=== PATIENT | male | born 1975 ===

== ENCOUNTER 2018-10-24 15:21 | Emergency (ER) | payer OTHER, SELFPAY ==
[2018-10-24 15:37] VITALS: BP 126/89; PULSE 96; RESP 16; TEMP 36.4; O2SAT 98
--- NOTE | 2018-10-24 20:44 | ED.MALEGU ---
HPI - Male Genitourinary <ZACHARIAH Marte - Last Filed: 10/24/18 23:22> General Chief complaint: Urogenital-Male Stated complaint: Groin issues,redness,hurts to urinate,x3 wks Time Seen by Provider: 10/24/18 20:20 Source: patient and family Mode of arrival: ambulatory Limitations: no limitations History of Present Illness HPI Narrative: Patient is a 42-year-old male who presents with his nephew with a chief complaint of penile discharge x4 weeks as well as a genital rash. he states that the rash creates discharge. the rash is also been going on for 3-4 weeks. He denies any abdominal pain. He states his rash is painful, electric feeling. Of note patient does not speak Malay and was repeatedly offered a welder [employer]. However he repeatedly stated that his nephew is a good welder [employer] declined use of our welder [employer]. He denies any fevers, nausea vomiting diarrhea. He states he has had sexual contact with multiple partners without protection recently. Denies any testicular pain or swelling. Denies abdominal pain or fever. Related Data Previous Rx's Medication Instructions Recorded valacyclovir 1,000 mg PO BID #20 tab 10/24/18 Allergies Allergy/AdvReac Type Severity Reaction Status Date / Time No Known Drug Allergies Allergy Verified 10/24/18 15:37 Review of Systems <ZACHARIAH Marte - Last Filed: 10/24/18 23:22> Review of Systems GENERAL: see HPI HEENT: Denies sinus pain, ear pain, sore throat, difficulty swallowing, dizziness. RESPIRATORY: Denies dyspnea, cough, wheezing, hemoptysis, sputum. CARDIOVASCULAR: Denies chest pain, palpitations, orthopnea, edema, GASTROINTESTINAL: Denies nausea, vomiting, abdominal pain, diarrhea, constipation, melena. : See HPI MUSCULOSKELETAL: denies weakness, joint pain, or bony pain SKIN: Denies rash, skin lesions, or other NEUROLOGIC: Denies weakness, headache, numbness, change in speech, confusion, seizures, incoordination. PSYCHIATRIC: No concerning psychosocial issues. 12 point review of systems is negative except for those stated above Exam <ZACHARIAH Marte - Last Filed: 10/24/18 23:22> Narrative Exam Narrative: GENERAL: This is a well-nourished, well-developed patient, Appears anxious HEAD: Atraumatic. Normocephalic. No temporal or scalp tenderness. EYES: Pupils equal round and reactive. Extraocular motions intact. No scleral icterus. No injection or drainage. ENT: Nose without bleeding, purulent drainage or septal hematoma. Throat without erythema, tonsillar hypertrophy or exudate. Uvula midline. Airway patent. NECK: Trachea midline. No JVD or lymphadenopathy. Supple, nontender, no meningeal signs. CARDIOVASCULAR: Regular rate and rhythm RESPIRATORY: no cough. No increased respiratory effort. GASTROINTESTINAL: Abdomen soft, non-tender, nondistended. No hepato-splenomegaly, or palpable masses. No guarding. EXTREMITIES: No clubbing, cyanosis, or edema. No joint tenderness, effusion, or edema noted. BACK: Nontender without deformity or crepitance. No flank tenderness. NEURO: AOx3. SKIN: Genital exam done with Jelena LONG as dietary service aide. Slight vesicular rash noted at of penis. Slight crusting noted. No penile discharge noted. Initial Vital Signs Initial Vital Signs: Vital Signs Temperature 97.5 F L 10/24/18 15:37 Pulse Rate 96 H 10/24/18 15:37 Respiratory Rate 16 10/24/18 15:37 Blood Pressure 126/89 10/24/18 15:37 Pulse Oximetry 98 10/24/18 15:37 <Nicolas Laura MD - Last Filed: 10/26/18 05:38> Initial Vital Signs Initial Vital Signs: Vital Signs Temperature 97.5 F L 10/24/18 15:37 Pulse Rate 96 H 10/24/18 15:37 Respiratory Rate 16 10/24/18 15:37 Blood Pressure 126/89 10/24/18 15:37 Pulse Oximetry 98 10/24/18 15:37 Course <MIREYA Marte-RENETTA - Last Filed: 10/24/18 23:22> Orders Ordered: Discontinued Medications Ibuprofen (Advil) 800 mg PO NOW ONE Stop: 10/24/18 22:26 Last Admin: 10/24/18 22:35 Dose: 800 mg Vital Signs - 8 hr 10/24/18 15:37 10/24/18 22:12 Temperature 97.5 F L Pulse Rate 96 H 92 H Respiratory Rate 16 18 Blood Pressure 126/89 Blood Pressure [Right Arm] 134/88 Pulse Oximetry 98 98 <Nicolas Laura MD - Last Filed: 10/26/18 05:38> Orders Ordered: Discontinued Medications Ibuprofen (Advil) 800 mg PO NOW ONE Stop: 10/24/18 22:26 Last Admin: 10/24/18 22:35 Dose: 800 mg Vital Signs - 8 hr 10/24/18 15:37 10/24/18 22:12 Temperature 97.5 F L Pulse Rate 96 H 92 H Respiratory Rate 16 18 Blood Pressure 126/89 Blood Pressure [Right Arm] 134/88 Pulse Oximetry 98 98 MDM - Male Genitourinary <MIREYA Marte- - Last Filed: 10/24/18 23:22> Lab Data Lab Results 10/24/18 10/24/18 10/24/18 Range/Units 20:06 20:20 20:40 Urine RBC None seen (0-5/HPF) Urine WBC None seen (0-5/HPF) Urine Bacteria None seen (None) Ur Culture Indicated? Cult not indicated Micro UA Comment Microscopic normal Ur Chlamydia DNA (PCR) Not detected Hep Bs Antigen Negative (NEGATIVE) s/c HIV 1&2 Antibody Negative (NEGATIVE) N gonorrhoeae DNA (PCR) Not detected Urine Dip Bedside Urine Glucose 1000 mg/dl Bedside Urine Bilirubin - Negative Bedside Urine Ketone + 15 Urine Specific [place] 1.010 Bedside Urine Occult Blood - Negative Bedside Urine pH 6.5 Bedside Urine Protein - Negative Bedside Urine Urobilinogen +/- 1mg Bedside Urine Nitrite - Negative Bedside Urine Leukocytes - Negative Esterase MDM Narrative Medical decision making narrative: The patient is a 42-year-old male who presents with suspicion of STIs given multiple sexual partners recently. He does have a genital rash noted and the exam is consistent with genital herpes. He had a negative gonorrhea, negative chlamydia, negative HIV. At this point several labs are pending as we do not do them in house. I encouraged the patient to follow up with primary care provider or obtain medical records. I encouraged him to do safe sex practices, use condoms etc. the patient elected to treat for herpes at this point in time while viral cultures are pending. I encouraged him at length to follow up with primary care provider. <Nicolas Laura MD - Last Filed: 10/26/18 05:38> Lab Data Lab Results 10/24/18 10/24/18 10/24/18 Range/Units 20:06 20:20 20:40 Urine RBC None seen (0-5/HPF) Urine WBC None seen (0-5/HPF) Urine Bacteria None seen (None) Ur Culture Indicated? Cult not indicated Micro UA Comment Microscopic normal Ur Chlamydia DNA (PCR) Not detected Hep Bs Antigen Negative (NEGATIVE) s/c HIV 1&2 Antibody Negative (NEGATIVE) N gonorrhoeae DNA (PCR) Not detected Urine Dip Bedside Urine Glucose 1000 mg/dl Bedside Urine Bilirubin - Negative Bedside Urine Ketone + 15 Urine Specific [place] 1.010 Bedside Urine Occult Blood - Negative Bedside Urine pH 6.5 Bedside Urine Protein - Negative Bedside Urine Urobilinogen +/- 1mg Bedside Urine Nitrite - Negative Bedside Urine Leukocytes - Negative Esterase Discharge Plan Departure Patient Disposition: Home Clinical Impression: Herpes Discharge Date/Time: 10/24/18 23:45 Interventions: ED Discharge Assessment Last Done: 10/24/18 23:44 Instructions: Facts About Sexually Transmitted Infections, How to Detect and Treat STDs, DI for Genital Herpes Activity Restrictions/Additional Instructions: Given the rash on your genitals, we are starting treatment for herpes. Your chlamydia gonorrhea and HIV test were negative. Please follow up with her primary care provider regarding her other test results as we have to send these out. If the herpes test comes back negative, he can discontinue treatment. Please follow-up with primary care provider. Please come back to the emergency department for urgent concerns including chest pain, shortness of breath concern of heart attack or stroke. It is very important that you speak with her sexual partners regarding her diagnoses so that they can be checked as well. It is very important that you use condoms and use safe sex practices. Prescriptions: New valacyclovir 1 gram tablet 1,000 mg PO BID Qty: 20 RF: 0 Referrals: Ofe Garcia MD [Primary Care Provider] - <Nicolas Laura MD - Last Filed: 10/26/18 05:38> Cosign ED Attending Jasonature Attestation: I was working in the ER at the time of this patient's evaluation. I was available for verbal consult or to see the patient directly if needed. I agree with the patient's assessment and treatment plan.
[2018-10-24 21:18] LABS: Hepatitis B Surface Antigen NEGATIVE s/c (NEGATIVE)
[2018-10-24 21:21] LABS: HIV 1 and 2 Antibody NEGATIVE (NEGATIVE)
[2018-10-24 21:41] LABS: Urine N gonorrhoeae NOT DETECTED
[2018-10-24 22:12] VITALS: BP 134/88; PULSE 92; RESP 18; O2SAT 98
[2018-10-24 22:14] LABS: Urine Chlamydia NOT DETECTED
[2018-10-24 22:22] LABS: Bacteria Urine None Seen; RBC Urine None Seen (0-5/HPF); WBC Urine None Seen (0-5/HPF)
[2018-10-24] MEDS: IBUPROFEN 400 MG TABLET 800 MG PO (22:35)
[2018-10-24 23:02] LABS: Culture Indicated Urine Cult Not Indicated; Urine Comments Microscopic Normal
[2018-10-24 23:42] VITALS: BP 135/89; PULSE 83; RESP 18; O2SAT 98
[2018-10-27 15:13] LABS: Hepatitis B Surf Ab Qualitativ Reactive (Nonreactive)
== END 2018-10-24 23:45 | disposition home or self-care (01) ==
PROVIDERS: Emergency Provider Nurse Practitioner Family; Family Provider Internal Medicine; PCP Internal Medicine
DX: A60.00 Herpesviral infection of urogenital system, unspecified (principal); Z72.51 High risk heterosexual behavior
CPT/HCPCS: 36415; 81003; 81015; 86703; 86706; 86780; 87252; 87340; 87491; 87591; 99282

== ENCOUNTER 2018-11-19 19:37 | Inpatient (IN) | payer OTHER, SELFPAY ==
[2018-11-19 19:42] VITALS: BP 99/69; PULSE 87; RESP 18; TEMP 37.1; O2SAT 98
[2018-11-19 20:00] VITALS: BP 117/75; PULSE 83; RESP 18; O2SAT 98
--- NOTE | 2018-11-19 20:37 | ED.GENADULT ---
HPI - General Adult General Chief complaint: Diabetic Problem Stated complaint: STATES HIGH BLOOD SUGAR Time Seen by Provider: 11/19/18 20:11 Source: patient and family Mode of arrival: ambulatory Limitations: no limitations History of Present Illness HPI narrative: Patient complains of polydipsia and polyuria with fatigue for the last 4 weeks. He measured his blood sugar on a friend's glucometer today and found to be over 500. Patient denies nausea vomiting, but he has had a decreased appetite. No diarrhea. No dysuria, chest pain, shortness of breath, or cough. No fever. No other complaints at this time. Patient has a history of an elevated glucose reading of over 500 about a year ago had an unspecified doctor visit, but patient never followed up on this. Patient's relative states that is the blood sugars have been normal in between . When I asked him have a rib being measured, the relative stated that they had not actually been measuring, but just assumed that the blood sugars were normal because the patient was not having symptoms. Family member states that the patient goes to the doctor only extremely rarely. Related Data Home Medications Medication Instructions Recorded Confirmed albuterol sulfate [ProAir HFA] 1 - 2 puff INHALATION PRN PRN 11/19/18 11/19/18 Allergies Allergy/AdvReac Type Severity Reaction Status Date / Time No Known Drug Allergies Allergy Verified 10/24/18 15:37 Review of Systems Constitutional Denies chills, Denies fever(s), Denies lethargy and Denies weakness Comments: Polydypsia Eyes Denies change in vision, Denies eye discharge, Denies irritation and Denies loss of vision ENT Ears, Nose, Mouth, and Throat: Denies change in voice, Denies neck pain and Denies sore throat Cardiovascular Denies chest pain, Denies irregular heart rhythm, Denies lightheadedness, Denies palpitations, Denies dyspnea, Denies dyspnea on exertion and Denies orthopnea Respiratory Denies cough, Denies dyspnea, Denies dyspnea on exertion and Denies wheezing Gastrointestinal Gastrointestinal: Denies abdominal pain, Denies change in bowel habits, Denies diarrhea, Denies nausea and Denies vomiting Genitourinary Denies hematuria, Denies flank pain, Reports urinary frequency, Denies urinary incontinence and Denies urinary urgency Musculoskeletal Denies neck pain Integumentary/Breasts Denies pruritus, Denies erythema, Denies rash and Denies wounds Neurologic Denies confusion, Denies loss of vision and Denies weakness Psychiatric Denies anxiety, Denies confusion, Denies depression, Denies homicidal ideation and Denies suicidal ideation Endocrine Denies palpitations Hematologic/Lymphatic Denies easy bruising Allergic/Immunologic Denies wheezing PFSH Medical History Alcoholism (Acute) Hyperglycemia (Acute) Surgical History No pertinent past surgical history (Acute) Social History household members: none Smoking Status: Current every day smoker alcohol intake: former Social History household members: none Smoking Status: Current every day smoker alcohol intake: former Exam Initial Vital Signs Initial Vital Signs: Vital Signs Temperature 98.7 F 11/19/18 19:42 Pulse Rate 87 11/19/18 19:42 Respiratory Rate 18 11/19/18 19:42 Blood Pressure 99/69 11/19/18 19:42 Pulse Oximetry 98 11/19/18 19:42 Const General: cooperative and well developed Nutritional Appearance: well nourished Orientation: alert, awake, oriented x3 and not confused HENPA Head: normocephalic and atraumatic Ears: external ears normal Nose: external nose normal and No nasal discharge Face and sinus: face symmetric and No dry mucous membranes Mouth: oral mucosae normal and moist mucous membranes Teeth and gingiva: dentition normal Eyes General: appearance normal, both eyes and all related structures Eyelids: eyelids normal Conjunctivae: conjunctivae normal Sclera: sclerae normal Pupils: PERRL EOM: EOM intact bilaterally Neck Neck: normal visual inspection, trachea midline, No lymphadenopathy, No midline deformity and No JVD Lymphatic: No lymphedema Chest Chest: normal inspection of the chest Resp Effort & Inspection: normal respiratory effort, able to speak in complete sentences, no respiratory distress and no use of accessory muscles Auscultation: clear to auscultation bilaterally, no rales, no rhonchi and no wheezes Cardio Rate: regular rate Rhythm: regular rhythm Heart Sounds: no click, no gallops, no murmurs and no rubs Pulses: normal peripheral pulses GI Inspection: non-distended Palpation: soft, no hepatosplenomegaly, No guarding, No pulsatile mass and No tender Auscultation: normal bowel sounds Back/Spine/Pelvis Back: No CVA tenderness Cervical Spine: cervical ROM normal and No pain with cervical ROM Thoracic/Lumbar Spine: thoracic and lumbar spine normal to inspection Skin General: no rashes or lesions noted, No jaundice and No petechiae Neuro General: alert, oriented x3, gait normal and no focal motor deficits Speech: speech normal Extrem General: full ROM, no clubbing, cyanosis or edema, no pedal edema and no calf tenderness Psych Appearance: well kempt Mental Status: mental status grossly normal Attitude: cooperative Thought Content: normal and suicidality Judgment: judgment good Course Course Narrative: Patient was fairly well appearing, despite the very high reported blood sugar reading. He did not appear clinically to be in DKA. Additionally, his ABG was completely normal, and he did not have an anion gap that was wide. However, he was noted to have a blood sugar of 624 on laboratory studies, with normal kidney function noted. He was bolused with IV fluids in the emergency department and was given 12 units of insulin IV. [place] the patient should be admitted to the hospital, and I did discuss this with the patient and his family. I spoke with Berny Garcia, the on-call hospitalist, and he did agree to admit the patient to his service. At this time, hospitalist service would like to do a sliding scale for the patient rather than a drip. Patient remained stable throughout his stay in the emergency department. Orders Ordered: ED Orders 11/19/18 20:10 Complete Blood Count AUTO DIFF Stat Comprehensive Metabolic Panel Stat Ketones (Beta-Hydroxybutyrate) Stat Lactate (Lactic Acid) Stat 11/19/18 20:24 ABG [Arterial Blood Gas] Stat 11/20/18 XR chest 2V Routine Basic Metabolic Panel Routine Complete Blood Count AUTO DIFF Routine Lipid Panel Routine 11/20/18 00:42 Consult to Dietitian, Adult Routine Consult to Discharge Planning Routine 11/20/18 00:43 Hemoglobin A1C % Routine 11/20/18 01:05 MRSA PCR Routine 11/20/18 01:09 Procalcitonin Routine 11/20/18 01:40 Respiratory Panel (Film Array) Urgent Acetaminophen (Tylenol) 650 mg PO Q6HR PRN PRN Reason: As Needed for Fever/Mild Pain Hydrocodone Bitart/Acetaminophen ([place] 5/325) 1 tab PO Q4HR PRN PRN Reason: Pain, Moderate (4-6) Albuterol (Ventolin Hfa) 2 puff INH Q4H PRN PRN Reason: Shortness Of Breath Benzonatate (Tessalon Perles) 200 mg PO TID PRN PRN Reason: Cough Bisacodyl (Dulcolax) 10 mg PO DAILY PRN PRN Reason: Constipation Dextrose (D50w) 25 gm IV PRN PRN; Protocol PRN Reason: Hypoglycemia Docusate Sodium (Colace) 100 mg PO BID UBALDO Enoxaparin Sodium (Lovenox) 40 mg SUBCUT DAILY UBALDO Sodium Chloride (Normal Saline 0.9%) 1,000 mls @ 200 mls/hr IV CONT UBALDO Last Admin: 11/20/18 00:56 Dose: 200 mls/hr Sodium Chloride (Normal Saline 0.9%) 1,000 mls @ 500 mls/hr IV BOLUS ONE Stop: 11/20/18 03:00 Ibuprofen (Advil) 600 mg PO Q6HR PRN PRN Reason: As Needed for Fever/Mild Pain Insulin Aspart (Novolog Flexpen) 0 unit SUBCUT ACHS UBALDO; Protocol Ondansetron HCl (Zofran) 4 mg IV Q8HR PRN PRN Reason: Nausea And Vomiting Pantoprazole Sodium (Protonix) 20 mg PO 0600 UBALDO Discontinued Medications Sodium Chloride (Normal Saline 0.9%) 1,000 mls @ 1,000 mls/hr IV BOLUS ONE Stop: 11/19/18 21:41 Last Infusion: 11/20/18 00:11 Dose: 0 mls/hr Admin: 11/19/18 20:46 Dose: 1,000 mls/hr Insulin Human Regular (Humulin R) 12 unit IV NOW ONE Stop: 11/19/18 22:08 Last Admin: 11/19/18 22:43 Dose: 12 unit Vital Signs - 8 hr 11/19/18 19:42 11/19/18 20:00 11/19/18 20:46 Temperature 98.7 F Pulse Rate 87 83 81 Respiratory Rate 18 18 19 Blood Pressure 99/69 Blood Pressure [Right Arm] 117/75 117/75 Pulse Oximetry 98 98 99 11/20/18 00:57 Temperature 98.4 F Pulse Rate 87 Respiratory Rate 18 Blood Pressure 115/72 Blood Pressure [Right Arm] Pulse Oximetry 95 Medical Decision Making Medical Records Medical records reviewed: Yes I reviewed the patient's medical records. Lab Data Lab results reviewed: Yes I reviewed the patient's lab results. Result diagrams: 11/19/18 20:10 11/19/18 20:10 Lab Results 11/19/18 11/19/18 11/19/18 Range/Units 20:10 20:10 20:10 WBC 3.7 L (4.5-11.0) X10^3/uL RBC 4.63 (4.5-5.9) X10^6/uL Hgb 13.2 L (13.5-17.5) g/dL Hct 39.2 L (41-53) % MCV 84.7 (80-100) fL MCH 28.5 (26-34) PG MCHC 33.6 (30-36) % RDW 16.6 H (11.6-14.8) % Plt Count 69 L (150-400) X10^3/uL Neut % (Auto) 60.6 (50-75) % Lymph % (Auto) 26.1 (25-40) % [place] % (Auto) 11.7 (3-14) % Eos % (Auto) 1.1 L (2-4) % Baso % (Auto) 0.5 (0-2) % Neut # (Auto) 2200 (9206-9016) /uL Lymph # (Auto) 1000 L (8342-2814) /uL [place] # (Auto) 400 (0-900) /uL Eos # (Auto) 0 (0-450) /uL Baso # (Auto) 0 (0-100) /uL ABG pH (7.35-7.45) ABG pCO2 (35-45) mmHg ABG pO2 (80-100) mmHg ABG HCO3 (22-26) mmol/L ABG Total CO2 (21-31) mmol/L ABG O2 Saturation (95-100) % ABG Base Excess (-2-2) mmol/L FiO2 Sodium 129 L (137-145) mmol/L Potassium 4.0 (3.4-5.1) mmol/L Chloride 91 L (98-107) mmol/L Carbon Dioxide 23 (22-32) mmol/L BUN 14 (9-20) mg/dL Creatinine 0.40 L (0.66-1.25) mg/dL Estimated GFR > 60.0 (>60) mL/min BUN/Creatinine Ratio 35.0 H (6-22) Glucose 624 H* (70-100) mg/dL Lactate 0.9 (0.7-2.1) mmol/L Calcium 8.7 (8.4-10.2) mg/dL Total Bilirubin 1.2 (0.2-1.3) mg/dL AST 33 (17-59) IU/L ALT 31 (21-72) IU/L Alkaline Phosphatase 183 H (38-126) U/L Total Protein 7.1 (6.3-8.2) g/dL Albumin 3.7 (3.5-5.0) g/dL Globulin 3.4 (1.7-4.1) g/dL Albumin/Globulin Ratio 1.1 (1.0-2.8) Ketones (<0.27) mmol/L 11/19/18 11/19/18 Range/Units 20:10 20:24 WBC (4.5-11.0) X10^3/uL RBC (4.5-5.9) X10^6/uL Hgb (13.5-17.5) g/dL Hct (41-53) % MCV (80-100) fL MCH (26-34) PG MCHC (30-36) % RDW (11.6-14.8) % Plt Count (150-400) X10^3/uL Neut % (Auto) (50-75) % Lymph % (Auto) (25-40) % [place] % (Auto) (3-14) % Eos % (Auto) (2-4) % Baso % (Auto) (0-2) % Neut # (Auto) (0872-0701) /uL Lymph # (Auto) (4802-3318) /uL [place] # (Auto) (0-900) /uL Eos # (Auto) (0-450) /uL Baso # (Auto) (0-100) /uL ABG pH 7.40 (7.35-7.45) ABG pCO2 37.4 (35-45) mmHg ABG pO2 90 (80-100) mmHg ABG HCO3 23 (22-26) mmol/L ABG Total CO2 24 (21-31) mmol/L ABG O2 Saturation 97 (95-100) % ABG Base Excess -2.0 (-2-2) mmol/L FiO2 21 Sodium (137-145) mmol/L Potassium (3.4-5.1) mmol/L Chloride (98-107) mmol/L Carbon Dioxide (22-32) mmol/L BUN (9-20) mg/dL Creatinine (0.66-1.25) mg/dL Estimated GFR (>60) mL/min BUN/Creatinine Ratio (6-22) Glucose (70-100) mg/dL Lactate (0.7-2.1) mmol/L Calcium (8.4-10.2) mg/dL Total Bilirubin (0.2-1.3) mg/dL AST (17-59) IU/L ALT (21-72) IU/L Alkaline Phosphatase (38-126) U/L Total Protein (6.3-8.2) g/dL Albumin (3.5-5.0) g/dL Globulin (1.7-4.1) g/dL Albumin/Globulin Ratio (1.0-2.8) Ketones 4.13 H (<0.27) mmol/L Point of Care Testing Glucose POC 325 Point of care testing: Point of Care Testing Glucose POC 325 Discharge Plan Departure Patient Disposition: Admitted As Inpatient Clinical Impression: Diabetes mellitus, new onset Discharge Date/Time: 11/20/18 00:51 Interventions: ED Discharge Assessment Last Done: 11/19/18 23:33 Admit Date/Time: 11/20/18 00:49 Admit Provider: Isaiah Garcia
[2018-11-19 20:43] LABS: Add Manual Diff / Slide Review NO; Basophils Absolute Auto 0 /uL (0-100); Basophils Percent Auto 0.5 % (0-2); Eosinophils Absolute Auto 0 /uL (0-450); Eosinophils Percent Auto 1.1 % (2-4); Hematocrit 39.2 % (41-53); Hemoglobin 13.2 g/dL (13.5-17.5); Lymphocytes Absolute Auto 1000 /uL (1100-4500); Lymphocytes Percent Auto 26.1 % (25-40); Mean Corpuscular HGB Conc 33.6 % (30-36); Mean Corpuscular Hemoglobin 28.5 PG (26-34); Mean Corpuscular Volume 84.7 fL (80-100); Monocytes Absolute Auto 400 /uL (0-900); Monocytes Percent Auto 11.7 % (3-14); Neutrophils Absolute Auto 2200 /uL (1500-7000); Neutrophils Percent Auto 60.6 % (50-75); Platelet Count 69 X10^3/uL (150-400); Red Blood Cell Count 4.63 X10^6/uL (4.5-5.9); Red Cell Distribution Width 16.6 % (11.6-14.8); White Blood Cell Count 3.7 X10^3/uL (4.5-11.0)
[2018-11-19 20:46] VITALS: BP 117/75; PULSE 81; RESP 19; O2SAT 99
[2018-11-19] MEDS: SODIUM CHLORIDE 0.9% 1,000 ML 1000 ML IV (20:46)
[2018-11-19 20:47] LABS: PCO2 ABG 37.4 mmHg (35-45); PO2 ABG 90 mmHg (80-100)
[2018-11-19 20:48] LABS: Fractionated Inspired Oxygen 21; HCO3 ABG 23 mmol/L (22-26); Oxygen Saturation ABG 97 % (95-100); TCO2 ABG 24 mmol/L (21-31)
[2018-11-19 20:52] LABS: Alanine Aminotransferase 31 IU/L (21-72); Albumin 3.7 g/dL (3.5-5.0); Albumin Globulin Ratio 1.1 (1.0-2.8); Alkaline Phosphatase 183 U/L (38-126); Aspartate Aminotransferase 33 IU/L (17-59); Bilirubin Total 1.2 mg/dL (0.2-1.3); Blood Urea Nitrogen 14 mg/dL (9-20); Calcium 8.7 mg/dL (8.4-10.2); Carbon Dioxide 23 mmol/L (22-32); Chloride 91 mmol/L (98-107); Estimated Glomerular Filt Rate > 60.0 mL/min (>60); Globulin 3.4 g/dL (1.7-4.1); Sodium 129 mmol/L (137-145); Total Protein 7.1 g/dL (6.3-8.2)
[2018-11-19 20:58] LABS: HEMOLYSIS 35 (0-50)
[2018-11-19 21:06] LABS: Lactate (Lactic Acid) 0.9 mmol/L (0.7-2.1)
[2018-11-19 21:09] LABS: Glucose 624 mg/dL (70-100)
[2018-11-19 22:31] LABS: Ketones (Beta-Hydroxybutyrate) 4.13 mmol/L (<0.27)
[2018-11-19] MEDS: INSULIN REGULAR 100 UNIT/ML 3 ML VIAL 12 UNIT IV (22:43)
--- NOTE | 2018-11-19 23:06 | PC.NURSE ---
Pt reports increased thirst and urination over past 4 weeks
[2018-11-20] VITALS (9 sets, daily range): BP systolic 115–126; BP diastolic 72–87; PULSE 66–91; RESP 16–20; TEMP 36.6–37; O2SAT 95–98; BMI 21.6
--- NOTE | 2018-11-20 | DI.US.S_ITS ---
PROCEDURE: US ABDOMEN COMPLETE INDICATIONS: ELEVATED ALK PHOS, PT AND INR, R/O LIVER OR BILIARY DISEASE TECHNIQUE: Real-time scanning was performed of the abdominal and retroperitoneal organs, with image documentation. COMPARISON: None. FINDINGS: Liver: Liver is normal in size and homogeneous in echotexture. Gallbladder: Gallbladder is normal in sonographic appearance without gallstones, wall thickening, pericholecystic fluid, or abnormal sonographic Knight's. Biliary ducts: Intrahepatic bile ducts are non-dilated. Extrahepatic bile duct caliber measures 4 mm. Normal is 6-7 mm or less in diameter, or 10 mm or less post-cholecystectomy. Pancreas: Visualized portions of the pancreas are sonographically normal. Spleen: Spleen is normal in size and homogeneous in echotexture. Kidneys: Kidneys are normal in size and echotexture. Right kidney measures 11.1 cm long; left kidney measures 10.3 cm long. No hydronephrosis or nephrolithiasis. No solid masses. Aorta: Visualized aorta is normal in caliber at less than 3 cm. Iliacs: Not well-visualized due to bowel gas. IVC: Intrahepatic inferior vena cava is patent. Miscellaneous: No free abdominal fluid. IMPRESSION: Abdomen without sonographic abnormalities. Specifically, normal sonographic appearance of the liver. Dictated by: Aki Montenegro M.D. on 11/20/2018 at 10:32 Approved by: Aki Montenegro M.D. on 11/20/2018 at 10:40
--- NOTE | 2018-11-20 | DI.RAD.S_ITS ---
PROCEDURE: XR CHEST 2V INDICATIONS: Persistent cough TECHNIQUE: 2 views of the chest were acquired. COMPARISON: [facility], , CHEST 1 VIEW, 01/12/2016, 16:49. FINDINGS: Surgical changes and devices: None. Lungs and pleura: Lungs are clear. No pleural effusions or pneumothorax. Mediastinum: Mediastinal contours are normal. Heart size is normal. Bones and chest wall: No suspicious bony abnormalities. Soft tissues appear unremarkable. IMPRESSION: No acute cardiopulmonary disease. Dictated by: Cheri Terrell M.D. on 11/20/2018 at 8:34 Approved by: Cheri Terrell M.D. on 11/20/2018 at 8:34
--- NOTE | 2018-11-20 | DI.ECHO.S_ITS ---
[facility] +---------+ : : [address] : [address] : : : : [id number] : : : : Phone: [phone]+ Echocardiogram Report + + :Name: VI MAGAÑA Study Date: 11/21/2018 Height: 70 in : :[facility] Weight: 150 lb : : Gender: Male BSA: 1.8 m2 : :: 1975 Age: 42 yrs BP: 113/70 mmHg: :Reason For Study: cough : : Performed By: Iram Romo : :Referring: SHAUNNA RUVALCABA : + + Interpretation Summary The left ventricle is normal in size. The ejection fraction is estimated to be 60-65%. The right ventricle is normal in size and function. No significant valvular pathology seen. Procedure: A two-dimensional transthoracic echocardiogram with color flow and Doppler was performed. The study quality was technically adequate. There is no prior echocardiogram noted for this patient. The heart rate ranged between 79-84 bpm during the study. The patient was in normal sinus rhythm during the exam. Left Ventricle: The left ventricle is normal in size. Left ventricular wall thickness is at the upper limits of normal. There is no thrombus. The ejection fraction is estimated to be 60-65%. There are no focal wall motion abnormalities. Diastolic parameters suggest probable normal left ventricular diastolic function and normal filling pressures. Right Ventricle: The right ventricle is normal in size and function. Atria: Both atria are normal in size. There is no Doppler evidence for an interatrial shunt. Mitral Valve: The mitral valve leaflets appear mildly thickened, but open well. There is mild mitral annular calcification. There is trace mitral regurgitation. Aortic Valve: The aortic valve is trileaflet. The aortic valve opens well. There is discrete nodular thickening of the non- coronary cusp. The aortic valve is slightly calcified. There is no aortic valve stenosis. No aortic regurgitation is present. Tricuspid Valve: The tricuspid valve is normal in structure and function. There is a trace or physiologic amount of tricuspid regurgitation. Pulmonary artery pressures cannot be estimated because of the lack of a measurable TR jet velocity. Pulmonic Valve: The pulmonic valve is not well seen, but is grossly normal. There is a trace or physiologic amount of pulmonic regurgitation. Great Vessels: The aortic root is normal size. The ascending aorta is normal in size. The aortic arch is normal in size. The pulmonary artery is normal size. The IVC is of normal diameter and collapses greater than 50% with a sniff. This suggests a low right atrial pressure of 3 mm Hg. Pericardium/ Pleura There is no pericardial effusion. There is no pleural effusion. MMode/2D Measurements & Calculations LVIDd: 4.1 cm LVOT diam: 2.4 cm LVIDs: 2.4 cm Ao root diam: 3.4 cm FS: 42.9 % asc Aorta Diam: 3.0 cm EPSS: 0.05 cm Ao Arch Diam (Prox Trans): 2.3 cm IVSd: 1.1 cm LVPWd: 0.99 cm LV toro. diameter/BSA (cm/m^2): 2.2 LV sys. diameter/BSA (cm/m^2): 1.3 LA A2 area: 12.7 cm2 RA long axis: 4.1 cm LA A4 area: 14.1 cm2 RA area: 9.2 cm2 LA length (vol): 4.3 cm RA vol: 17.2 ml LA vol: 35.4 ml RA : 9.3 ml/m2 LA vol index: 19.2 ml/m2 IVC diam: 2.0 cm RVD1 (basal): 2.3 cm TAPSE: 1.8 cm Doppler Measurements & Calculations Ao V2 max: 99.2 cm/sec LVOT Max Syed: 68.7 cm/sec Ao V2 mean: 79.5 cm/sec LV V1 max P.9 mmHg Ao max P.9 mmHg LV V1 VTI: 14.6 cm Ao mean P.6 mmHg TAB(I,D): 3.5 cm2 Ao V2 VTI: 19.4 cm TAB(V,D): 3.2 cm2 sev ratio: 0.75 TAB indexed to BSA (cm^2/m^2): 1.9 MV E max syed: 59.2 cm/sec PA V2 max: 57.1 cm/sec MV A max syed: 49.4 cm/sec PA V2 mean: 41.6 cm/sec MV E/A: 1.2 PA mean P.77 mmHg Med Peak E' Syed: 7.9 cm/sec PA pr(Accel): 27.4 mmHg E/E' med: 7.5 Lat Peak E' Syed: 14.0 cm/sec E/E' lat: 4.2 E/e' average: 5.9 MV dec time: 0.15 sec SV(LVOT): 67.5 ml Reading Physician:WILBERT
[2018-11-20] MEDS: SODIUM CHLORIDE 0.9% 1,000 ML 200 ML IV (00:56)
[2018-11-20] MEDS: SODIUM CHLORIDE 0.9% 1,000 ML 500 ML IV (01:45)
[2018-11-20] MEDS: INSULIN ASPART 100 UNIT/ML INSULN PEN SUBCUT ×5 (02:10→22:07)
--- NOTE | 2018-11-20 02:19 | P.HP_ITS ---
History of Present Illness Date Patient Seen: 11/20/18 Time Patient Seen: 00:10 Chief complaint: STATES HIGH BLOOD SUGAR Narrative: This is a 42-year-old male patient with a past history of alcohol abuse, sober for 1 year, prior pneumonia development of empyema and elevated blood sugar who presents to the ER today with his nephew for feeling ill for 4 weeks and hyperglycemia. Patient reports being in deteriorating health starting 4 weeks ago with chills, headaches, dizziness and nausea. The patient used a friend's glucometer check his blood sugar with a result of ?high?. The patient notes that he was checked at a clinic 1 year ago at which time he had a blood sugar of 500. He reports associated symptoms of excessive thirst, excessive urination and hunger pains. He also reports his vision deteriorating over the same period but no visual field loss or cuts. Patient denies nasal congestion or sore throat has no neck or back pain, he reports chest pain associated with coughing but no shortness of breath. He denies abdominal pain but has had nausea as mention without vomiting. He also complains of recent constipation and reports nocturia 4-5 times nightly. The patient arrived in the ER at 7:42 p.m. and was found to have temperature of 98.7?, heart rate of 87, blood pressure 99/69, respirations of 18 in oxygen saturation of 98 % on room air. Patient's initial blood sugar was found to be 624. His blood count he has a white count 3.7 low hemoglobin 13.2 with hemat ocrit of 39.2 and platelets 69. His PT is elevated at 15 1 with an INR 1.3 a normal PTT of 36. He has an AST of 33, ALT of 31 elevated alkaline phosphatase at 183. On chemistries he is hyponatremic at 129 and potassium of 4.0.. with good renal function with a BUN of 14 creatinine 0.4. His BUN creatinine ratio 35 1. He is not acidotic with a pH of 7.40, pCO2 of 37 0.4 and a PO2 of 90 with a bicarb of 23 and a base excess of -2. The patient is non acidotic and in the ER has given 12 units of IV insulin and hydrated with 1 L of normal saline. The patient is admitted with a new diagnosis of diabetes and hyperosmolar nonketotic hyperglycemia. Patient History Medical History Alcoholism (Acute) Hyperglycemia (Acute) Surgical History No pertinent past surgical history (Acute) Social History household members: none Smoking Status: Current every day smoker alcohol intake: former Family & Social History Family History Father Healthy adult Grandfather Diabetes mellitus Family/Other Diabetes mellitus Son Healthy adolescent Social History: household members none Prior Living Arrangements House Safety & Behavioral: Feels Safe in Current Yes Environment Been Physically Hurt or No Threatened By a Person Suicidal Ideation Description None Suicide Plan Description No Plan Tobacco & Substance use: Tobacco type smokeless tobacco Smoking Status Current every day smoker alcohol intake former Substance Use Type does not use Comment: The patient is accompanied by his nephew for translation as he speaks only [place]. The patient lives alone and has been for 19 years and his is still living in [place]. The patient moved to the [facility] in 2014. Occupation: fleet driver Smoking: Patient reports never having smoked but does chew approximately 3 dips per day Alcohol: patient consumed 1 bottle of alcohol daily of hard liquor but has been sober for 1 year Subjective use: Patient denies recreation pharmaceuticals herbal or cannabis products Advanced directive: Patient is a full code and designates his nephew René to be his surrogate decision maker. Meds Home Medications Medication Instructions Recorded Confirmed Type albuterol sulfate [ProAir HFA] 1 - 2 puff INHALATION PRN PRN 11/19/18 11/19/18 History Allergies Allergy/AdvReac Type Severity Reaction Status Date / Time No Known Drug Allergies Allergy Verified 10/24/18 15:37 Review of Systems Review of Systems All systems reviewed & are unremarkable except as noted in HPI and below Exam Vital Signs (past 8 hours): - 11/19/18 19:42 11/19/18 20:00 11/19/18 20:46 Temperature 98.7 F Pulse Rate 87 83 81 Respiratory Rate 18 18 19 Blood Pressure 99/69 Blood Pressure [Right Arm] 117/75 117/75 Pulse Oximetry 98 98 99 11/20/18 00:57 Temperature 98.4 F Pulse Rate 87 Respiratory Rate 18 Blood Pressure 115/72 Blood Pressure [Right Arm] Pulse Oximetry 95 Oxygen Delivery Method Room Air Narrative Exam Narrative: GENERAL APPEARANCE: well developed, well nourished, BMI of 21.6 who is ill-appearing HEAD: Normocephalic, atraumatic, no scalp lesions. EYES: pupils equal, round, reactive to light and accommodation, sclera non- icteric, extraocular movement intact . EARS: normal external structures, no ear pain NOSE: sinuses non tender to percussion, no rhinorrhea ORAL CAVITY: mucosa dry with with coating on tongue, palate normal, tongue in midline. THROAT: normal, no erythema, no exudate, pharynx normal, uvula midline. NECK/THYROID: neck supple, no jugular venous distention, no carotid bruit, no thyromegaly, thyroid nontender, trachea midline. LYMPH NODES: no cervical or supraclavicular lymphadenopathy. SKIN: warm and dry, no suspicious lesions, no rashes, poor skin turgor HEART: regular rate and rhythm, no murmurs, rubs, gallops, brisk capillary refill, no edema LUNGS: Dry cough is present, clear to auscultation bilaterally, no coarseness crackles or wheezing CHEST: Symmetrical movement, no accessory muscle use, no pain to AP and lateral compression. ABDOMEN: Soft, no distention, no epigastric or abdominal tenderness on palpation, no guarding or peritoneal signs, no organomegaly, no flank or suprapubic tenderness BACK: Normal curvature, nontender to palpation, no CVA tenderness on percussion EXTREMITIES: moves all extremities, strength is 5/5 and symmetrical, well perfused. NEUROLOGIC: AAO x4, no focal neurologic deficits, motor strength normal upper and lower extremities, sensory exam intact to light touch, cranial nerves II-XII grossly intact, hearing grossly normal to speech. PSYCH: Somewhat lethargic, cognitive function intact, good eye contact, stable mood with congruent affect Objective Labs Result Diagrams: 11/19/18 20:10 11/19/18 20:10 Labs: Laboratory Results - last 24 hr 11/19/18 11/19/18 11/19/18 20:10 20:10 20:10 WBC 3.7 L RBC 4.63 Hgb 13.2 L Hct 39.2 L MCV 84.7 MCH 28.5 MCHC 33.6 RDW 16.6 H Plt Count 69 L Neut % (Auto) 60.6 Lymph % (Auto) 26.1 Carbon % (Auto) 11.7 Eos % (Auto) 1.1 L Baso % (Auto) 0.5 Neut # (Auto) 2200 Lymph # (Auto) 1000 L Carbon # (Auto) 400 Eos # (Auto) 0 Baso # (Auto) 0 ABG pH ABG pCO2 ABG pO2 ABG HCO3 ABG Total CO2 ABG O2 Saturation ABG Base Excess FiO2 Sodium 129 L Potassium 4.0 Chloride 91 L Carbon Dioxide 23 BUN 14 Creatinine 0.40 L Estimated GFR > 60.0 BUN/Creatinine Ratio 35.0 H Glucose 624 H* Lactate 0.9 Calcium 8.7 Total Bilirubin 1.2 AST 33 ALT 31 Alkaline Phosphatase 183 H Total Protein 7.1 Albumin 3.7 Globulin 3.4 Albumin/Globulin Ratio 1.1 Ketones 11/19/18 11/19/18 20:10 20:24 WBC RBC Hgb Hct MCV MCH MCHC RDW Plt Count Neut % (Auto) Lymph % (Auto) Carbon % (Auto) Eos % (Auto) Baso % (Auto) Neut # (Auto) Lymph # (Auto) Carbon # (Auto) Eos # (Auto) Baso # (Auto) ABG pH 7.40 ABG pCO2 37.4 ABG pO2 90 ABG HCO3 23 ABG Total CO2 24 ABG O2 Saturation 97 ABG Base Excess -2.0 FiO2 21 Sodium Potassium Chloride Carbon Dioxide BUN Creatinine Estimated GFR BUN/Creatinine Ratio Glucose Lactate Calcium Total Bilirubin AST ALT Alkaline Phosphatase Total Protein Albumin Globulin Albumin/Globulin Ratio Ketones 4.13 H Assessment & Plan Assessment & Plan narrative: 1. Hyperglycemia of diabetes type 2, new diagnosis, acute -patient presents with a blood glucose of 624 but a normal pH of 7.40 and bicarb of 23, ketones are 4.13. -patient with previous episode of hyperglycemia in the 500s 1 year ago, not on medication. -patient received 12 units insulin IV in the emergency department with 1 L of IV normal saline, on recheck blood sugars down to 325 -patient will be covered with sliding scale insulin medium dose range -he is also given an additional 1 L bolus over 2 hr then normal saline at 150 per hour -will check hemoglobin A1c and lipid panel -will consult community mental health social worker to assist with resources for diabetic teaching and community support -patient will need PCP 2. ETOH abuse, chronic -patient drank heavily 1 bottle of hard alcohol daily quitting 1 year ago -elevated PT at 15.1 INR 1.3 with a normal AST and ALT but elevated alkaline phosphatase at 183 -Will obtain an abdominal ultrasound of the upper abdomen 3. Bronchitis, acute -patient has chronic cough with symptoms consistent with viral syndrome -lungs are clear to auscultation without courses crackles or wheezing, chest x- ray is negative -obtain a respiratory PCR panel and check a procalcitonin -benzonatate 200 mg 3 times daily as needed. The patient is admitted to the hospital due to severity of symptoms and risk for complications. The patient is admitted as an inpatient with expected length of stay greater than 2 midnights. Quality VTE Deep Vein Thrombosis/Pulmonary Embolism Present on Admission: Yes
[2018-11-20 02:23] LABS: Hemoglobin A1C% w Est Avg Glu > 14.0 % (4.0-6.0)
[2018-11-20 03:29] LABS: Adenovirus Not Detected (Not Detect); Bordetella pertussis Not Detected (Not Detect); Chlamydophila pneumoniae Not Detected (Not Detect); Coronavirus 229E Not Detected (Not Detect); Coronavirus HKU1 Not Detected (Not Detect); Coronavirus NL 63 Not Detected (Not Detect); Coronavirus OC43 Not Detected (Not Detect); Human Metapneumovirus Not Detected (Not Detect); Human Rhinovirus/Enterovirus Not Detected (Not Detect); Influenza A Not Detected (Not Detect); Influenza B Not Detected (Not Detect); Mycoplasma pneumoniae Not Detected (Not Detect); Parainfluenza Virus 1 Not Detected (Not Detect); Parainfluenza Virus 2 Not Detected (Not Detect); Parainfluenza Virus 3 Not Detected (Not Detect); Parainfluenza Virus 4 Not Detected (Not Detect); Respiratory Syncytial Virus Not Detected (Not Detect)
[2018-11-20] MEDS: BENZONATATE 100 MG CAPSULE 200 MG PO ×3 (04:52→23:19)
[2018-11-20] MEDS: SODIUM CHLORIDE 0.9% 1,000 ML 150 ML IV (05:02)
--- NOTE | 2018-11-20 05:10 | PC.NURSE ---
Pt. admitted for a new onset diabetes. Pt. arrived to the unit via wheelchair. Pt. is a non Nepali speaking but pt's. nephew is present and interprets for him. Pt. is a&o, denies pain, and lungs CTA with sats of 95% RA. Pt. does have an occasional dry non productive cough. Nephew asked for cough med but has to be alcohol free for quaker reason. BG shortly after arrival to the unit was 325 which pt. received 5 units aspart insulin coverage. Voided once so far. MRSA nasal swab positive so pt. placed on contact precaution. Will continue to treat per hospitalist orders.
[2018-11-20 05:24] LABS: Blood Urea Nitrogen 9 mg/dL (9-20); Calcium 8.1 mg/dL (8.4-10.2); Carbon Dioxide 25 mmol/L (22-32); Chloride 100 mmol/L (98-107); Cholesterol 120 mg/dL (140-199); Estimated Glomerular Filt Rate > 60.0 mL/min (>60); Glucose 350 mg/dL (70-100); HDL Cholesterol 28 mg/dL (40-60); HEMOLYSIS < 15 (0-50); LDL Cholesterol Calculated 41 mg/dL (<100); Potassium 3.2 mmol/L (3.4-5.1); Sodium 135 mmol/L (137-145); Triglycerides 256 mg/dL (35-150)
[2018-11-20 05:31] LABS: Add Manual Diff / Slide Review NO; Basophils Absolute Auto 0 /uL (0-100); Eosinophils Absolute Auto 100 /uL (0-450); Hematocrit 37.1 % (41-53); Hemoglobin 12.5 g/dL (13.5-17.5); Lymphocytes Absolute Auto 1100 /uL (1100-4500); Lymphocytes Percent Auto 34.5 % (25-40); Mean Corpuscular HGB Conc 33.7 % (30-36); Mean Corpuscular Hemoglobin 28.4 PG (26-34); Mean Corpuscular Volume 84.4 fL (80-100); Monocytes Absolute Auto 400 /uL (0-900); Monocytes Percent Auto 12.8 % (3-14); Neutrophils Absolute Auto 1500 /uL (1500-7000); Neutrophils Percent Auto 49.7 % (50-75); Platelet Count 71 X10^3/uL (150-400); Red Cell Distribution Width 16.7 % (11.6-14.8); White Blood Cell Count 3.1 X10^3/uL (4.5-11.0)
[2018-11-20 05:50] LABS: Procalcitonin 0.07 ng/mL (<0.5)
[2018-11-20] MEDS: PANTOPRAZOLE 20 MG TABLET PO (06:15)
[2018-11-20] MEDS: POTASSIUM CHLORIDE 40 MEQ in SODIUM CHLORIDE 0.9% 500 ML 130 ML IV (06:22)
[2018-11-20 06:33] LABS: Creatine Kinase 42 U/L (55-170)
[2018-11-20 06:46] LABS: Troponin I < 0.012 ng/mL (0.01-0.034)
[2018-11-20] MEDS: ENOXAPARIN 40 MG/0.4 ML SYRINGE SUBCUT (09:24)
[2018-11-20] MEDS: INSULIN GLARGINE 100 UNIT/ML 3ML PEN 10 UNIT SUBCUT ×2 (09:24→22:06)
[2018-11-20] MEDS: DOCUSATE 100 MG CAPSULE PO (09:24)
[2018-11-20] MEDS: INFLUENZA VACCINE 0.5 ML SYRINGE IM (10:54)
--- NOTE | 2018-11-20 11:05 | PC.NURSE ---
pt with harsh cough. Tessilon pearls given. Nephew in room to translate. educated nephew about CBG and insulin given.
[2018-11-20 13:22] LABS: Troponin I < 0.012 ng/mL (0.01-0.034)
[2018-11-20] MEDS: METFORMIN HCL 500 MG TABLET 1000 MG PO (17:33)
--- NOTE | 2018-11-20 18:31 | PC.NURSE ---
Addendum entered by Leonora Pringle R.N. 11/20/18 22:39: 2130 - Use of support group manager phone for HS med use. Educate to BG and insulin administration. Pt requesting RX for cough. Original Note: Pt unable to speak or comprehend [place]. Nephew at bedside. Pt had previously declined hospital support group manager phone, and used google translate or nephew while MD was in room. Discussed DM meds and provided written educational material. Pt with cough, reported as productive with yellow sputum. Sputum cup provided. Educated to need for sample. Pt denies smoking but does use chewing tobacco. Moving independently in room. Call light and safety reinforced. Call light in reach.
[2018-11-21] VITALS (8 sets, daily range): BP systolic 108–118; BP diastolic 65–82; PULSE 74–96; RESP 16–21; TEMP 36.4–37.1; O2SAT 94–100
[2018-11-21] MEDS: HYDROCODONE/ACET 5/325 TABLET 1 TAB PO (04:19)
[2018-11-21] MEDS: PANTOPRAZOLE 20 MG TABLET PO (06:43)
[2018-11-21] MEDS: INSULIN ASPART 100 UNIT/ML INSULN PEN SUBCUT ×4 (08:13→20:37)
[2018-11-21] MEDS: DOCUSATE 100 MG CAPSULE PO (08:14)
[2018-11-21] MEDS: ENOXAPARIN 40 MG/0.4 ML SYRINGE SUBCUT (08:14)
[2018-11-21] MEDS: INSULIN GLARGINE 100 UNIT/ML 3ML PEN 20 UNIT SUBCUT ×2 (08:14→20:37)
[2018-11-21] MEDS: METFORMIN HCL 500 MG TABLET 1000 MG PO ×2 (08:14→17:06)
[2018-11-21] MEDS: ACETAMINOPHEN 325 MG TABLET 650 MG PO (08:49)
--- NOTE | 2018-11-21 11:34 | CM.DANOTE ---
DCP: Case received, EMR reviewed and met with patient. Introduced self and role. DCP template completed with information currently available, as well as a beef killer, for patient does not speak Ivorian. PCP: Dr. Garcia. Payer: confirmed: [facility]. Patient came to hospital via family vehicle on 11/20, due to symptoms of high blood sugar. Patient is from [place], does not speak Ivorian, but pleasant individual. He lives in [place] with cousins in [place]. Patient does have primary doctor, confirmed with him during conversation, Dr. Garcia. 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 Patient has history of Diabetes, as well as history of alcohol abuse. P: DCP to continue to follow. Patient may be able to be discharged home when his blood sugars are stable, and will also need to follow up with his primary care doctor. Katia Jensen RN/Records Administrator
--- NOTE | 2018-11-21 17:44 | P.PN_ITS ---
Subjective Date Patient Seen: 11/21/18 Interval history: Osvaldo Chawla is a 42-year-old male with a past medical history significant for alcohol abuse, sober for 1 year, prior pneumonia with development of empyema and elevated blood sugar who presented to the ED feeling overall ill for the last 4 weeks and was admitted for hyperglycemia. He continues to be significantly hyperglycemic with blood glucose 300-400 despite increasing Lantus and starting metformin. The patient is resting in bed comfortably. He reports that he has polyuria and polydipsia. He denies nausea or vomiting. He no longer feels shaky or ill. He has a chronic cough for which an echocardiogram was performed and did not demonstrate any significant cardiac disease. He denies headache, chest pain, abdominal pain, fever, chills, dysuria, diarrhea constipation. He is voiding and eliminating without difficulty. He is up ambulating independently. Exam Vital Signs (past 8 hours): - 11/21/18 12:00 11/21/18 16:00 Temperature 97.6 F 98.3 F Pulse Rate 80 84 Respiratory Rate 20 20 Blood Pressure 113/70 110/65 Pulse Oximetry 96 98 Oxygen Delivery Method Room Air Oxygen Flow Rate 0 Narrative Exam Narrative: General: No acute distress, well-developed, well-nourished, appropriately interactive HEENT: Normocephalic, atraumatic. External ears without defect. Pupils equal, round, and reactive to light and accommodation. Anicteric sclerae, moist conjunctivae, and no lid lag. Oropharynx free of erythema and cobble stoning with moist mucosa. Neck: Supple with full range of motion. No jugular venous distension. No bruits. No lymphadenopathy or thyromegaly. Cardiovascular: Regular rate and rhythm without murmurs, rubs, or gallops appreciated Pulmonary: Clear to auscultation bilaterally without crackles, wheezes, or rhonchi. Normal respiratory effort with no use of accessory muscles. Abdomen: Bowel tones present. Soft, nontender, nondistended. No hepatosplenomegaly or masses appreciated. Extremities: No clubbing, cyanosis, or edema. Skin: Normal temperature, turgor, and texture; no rash, ulcers, or subcutaneous nodules appreciated. Neurological: Cranial nerves grossly intact. Normal muscle strength, tone, and bulk. Reflexes, coordination, and sensory function within normal limits. No known gait impairment. Psychiatric: Normal mood and affect. Alert and oriented to person, place, and time. Objective Labs Result Diagrams: 11/21/18 17:50 11/21/18 17:50 Assessment & Plan Assessment & Plan narrative: Osvaldo Chawla is a 42-year-old male with a past medical history significant for alcohol abuse, sober for 1 year, prior pneumonia with development of empyema and elevated blood sugar who presented to the ED feeling overall ill for the last 4 weeks and was admitted for hyperglycemia. 1. Acute hyperglycemia, present on admission. Active. -Patient presented with a blood glucose of 624 but a normal pH of 7.40 and bicarb of 23, ketones are 4.13. Previous episode of hyperglycemia (500s) 1 year ago, not on medication. -Hemoglobin A1c greater than 14%. -Received 12 units insulin IV in ED. Started on metformin 1000 mg twice daily and Lantus increased from 10 units daily to 20 units twice daily. -Continue high-dose correctional scale insulin. -Continued IV fluids until adequately hydrated. -Consulted [facility] to assist with resources for diabetic teaching and community support. Will need insulin teaching. -Patient will need PCP. Scheduled appointment for hospital follow-up with Dr. Ofe Garcia on 11/27. 2. History of alcohol abuse in remission. -Patient drank heavily 1 bottle of hard alcohol daily quitting 1 year ago. -Elevated PT at 15.1/ INR 1.3 with a normal AST and ALT but elevated alkaline p hosphatase at 183. Abdominal ultrasound did not demonstrate evidence of liver disease. 3. Chronic cough, present on admission. Stable. -Patient previously had pneumonia with empyema which is resolved. Complains of chronic nonproductive cough. Afebrile. -Chest x-ray did not demonstrate any acute cardiopulmonary process. -Echocardiogram unremarkable. -Viral respiratory PCR negative. -Ordered benzonatate 200 mg 3 times daily as needed. -Etiology unclear. Differential diagnosis includes postnasal drip from allergic rhinitis versus acid reflux versus mild asthma. Will need outpatient follow-up. Disposition: Likely to discharge in 1-2 days depending upon control of hyperglycemia of diabetes mellitus type 2. Quality VTE Deep Vein Thrombosis/Pulmonary Embolism Present on Admission: Yes
[2018-11-21 17:58] LABS: Add Manual Diff / Slide Review NO; Basophils Absolute Auto 0 /uL (0-100); Basophils Percent Auto 1.1 % (0-2); Eosinophils Absolute Auto 100 /uL (0-450); Eosinophils Percent Auto 1.7 % (2-4); Hematocrit 42.8 % (41-53); Hemoglobin 14.6 g/dL (13.5-17.5); Lymphocytes Absolute Auto 1000 /uL (1100-4500); Lymphocytes Percent Auto 28.2 % (25-40); Mean Corpuscular Hemoglobin 28.3 PG (26-34); Mean Corpuscular Volume 83.3 fL (80-100); Monocytes Absolute Auto 400 /uL (0-900); Monocytes Percent Auto 11.6 % (3-14); Neutrophils Absolute Auto 2100 /uL (1500-7000); Neutrophils Percent Auto 57.4 % (50-75); Platelet Count 77 X10^3/uL (150-400); Red Blood Cell Count 5.14 X10^6/uL (4.5-5.9); Red Cell Distribution Width 16.5 % (11.6-14.8); White Blood Cell Count 3.6 X10^3/uL (4.5-11.0)
[2018-11-21 18:08] LABS: Alanine Aminotransferase 36 IU/L (21-72); Alkaline Phosphatase 169 U/L (38-126); Aspartate Aminotransferase 35 IU/L (17-59); Blood Urea Nitrogen 6 mg/dL (9-20); Carbon Dioxide 24 mmol/L (22-32); Chloride 95 mmol/L (98-107); Estimated Glomerular Filt Rate > 60.0 mL/min (>60); Glucose 320 mg/dL (70-100); HEMOLYSIS 26 (0-50); Magnesium 1.5 mg/dL (1.6-2.3); Potassium 3.7 mmol/L (3.4-5.1); Sodium 133 mmol/L (137-145)
--- NOTE | 2018-11-21 20:51 | PC.NURSE ---
2045 - Pt up independently in room. BG 284, coverage provided as ordered. VSS. Continues to have harsh cough. Sats 98%. Isolation for MRSA in nares.
[2018-11-21] MEDS: BENZONATATE 100 MG CAPSULE 200 MG PO (23:57)
[2018-11-22] VITALS (10 sets, daily range): BP systolic 103–127; BP diastolic 63–82; PULSE 70–94; RESP 14–20; TEMP 36.1–36.5; O2SAT 95–99
[2018-11-22] MEDS: ACETAMINOPHEN 325 MG TABLET 650 MG PO ×2 (00:11→06:22)
[2018-11-22] MEDS: IBUPROFEN 600 MG TABLET PO (00:31)
[2018-11-22] MEDS: BENZONATATE 100 MG CAPSULE 200 MG PO (06:21)
[2018-11-22] MEDS: PANTOPRAZOLE 20 MG TABLET PO (06:22)
--- NOTE | 2018-11-22 07:38 | P.PN_ITS ---
Subjective Date Patient Seen: 11/22/18 Interval history: Osvaldo Chawla is a 42-year-old male with a past medical history significant for alcohol abuse, sober for 1 year, prior pneumonia with development of empyema and elevated blood sugar who presented to the ED feeling overall ill for the last 4 weeks and was admitted for hyperglycemia. He continues to be significantly hyperglycemic with blood glucose 300-400 despite increasing Lantus and starting metformin. The patient is resting on bedside comfortably. His nephew acts as primary disassembler. He continues to endorse polyuria and polydipsia. Otherwise he states he is fine. He is confused on how he has diabetes as he is been checked for this 4 years ago in [place]. It was explained that this has likely been a slow progressive process. He continues to endorse chronic dry cough. He otherwise denies headache, chest pain, abdominal pain, nausea, vomiting, fever, chills, dysuria, diarrhea constipation. He is voiding and eliminating without difficulty. He is up ambulating independently. Exam Vital Signs (past 8 hours): - 11/22/18 00:00 11/22/18 00:01 11/22/18 04:46 Temperature 97.5 F L 97.4 F L Pulse Rate 94 H 85 Respiratory Rate 20 16 Blood Pressure 116/77 104/65 Pulse Oximetry 96 95 97 Oxygen Delivery Method Room Air Oxygen Flow Rate 0 Narrative Exam Narrative: General: Middle aged gentleman in no acute distress, well-developed, well- nourished, appropriately interactive. HEENT: Normocephalic, atraumatic. External ears without defect. Pupils equal, round, and reactive to light. Anicteric sclerae, moist conjunctivae, and no lid lag. Neck: Supple with full range of motion. No lymphadenopathy or thyromegaly. Cardiovascular: Regular rate and rhythm without murmurs, rubs, or gallops appreciated. Pulmonary: Clear to auscultation bilaterally without crackles, wheezes, or rhonchi. Normal respiratory effort with no use of accessory muscles. Abdomen: Bowel tones present. Soft, nontender, nondistended. No hepatosplenomegaly or masses appreciated. Extremities: No clubbing, cyanosis, or edema. Skin: Normal temperature, turgor, and texture; no rash, ulcers, or subcutaneous nodules appreciated. Neurological: Cranial nerves grossly intact. Psychiatric: Normal mood and affect. Alert and oriented to person, place, and time. Poor insight. Objective Labs Result Diagrams: 11/22/18 07:40 11/22/18 07:40 Labs: Laboratory Results - last 24 hr 11/21/18 11/21/18 17:50 17:50 WBC 3.6 L RBC 5.14 Hgb 14.6 Hct 42.8 MCV 83.3 MCH 28.3 MCHC 34.0 RDW 16.5 H Plt Count 77 L Neut % (Auto) 57.4 Lymph % (Auto) 28.2 [place] % (Auto) 11.6 Eos % (Auto) 1.7 L Baso % (Auto) 1.1 Neut # (Auto) 2100 Lymph # (Auto) 1000 L [place] # (Auto) 400 Eos # (Auto) 100 Baso # (Auto) 0 Sodium 133 L Potassium 3.7 Chloride 95 L Carbon Dioxide 24 BUN 6 L Creatinine 0.40 L Estimated GFR > 60.0 BUN/Creatinine Ratio 15.0 Glucose 320 H Calcium 9.0 Magnesium 1.5 L Total Bilirubin 1.0 AST 35 ALT 36 Alkaline Phosphatase 169 H Total Protein 8.0 Albumin 4.0 Globulin 4.0 Albumin/Globulin Ratio 1.0 Assessment & Plan Assessment & Plan narrative: Osvaldo Chawla is a 42-year-old male with a past medical history significant for alcohol abuse, sober for 1 year, prior pneumonia with development of empyema and elevated blood sugar who presented to the ED feeling overall ill for the last 4 weeks and was admitted for hyperglycemia. 1. Acute hyperglycemia of diabetes mellitus type 2, present on admission. Active. -Patient has longstanding history of alcohol abuse and family history of diabetes mellitus type 2. He is behaving as a type 1 diabetic. Ordered C- peptide, pending. -Patient presented with a blood glucose of 624 but a normal pH of 7.40 and bicarb of 23, ketones are 4.13. Previous episode of hyperglycemia (500s) 1 year ago, not on medication. -Hemoglobin A1c greater than 14%. -Continued IV fluids until adequately hydrated. -Received 12 units insulin IV in ED. Started on metformin 1000 mg twice daily and Lantus increased to 30 units twice daily. Continue high-dose correctional scale insulin. The patient is a tow truck driver, therefore, trying to facilitate a reasonable diabetic regimen. -Consulted STUDENT SUPPORT SERVICES DIRECTOR to assist with resources for diabetic teaching and community support. Provided insulin teaching and visual educator will be in hospital tomorrow to provide diabetic teaching. -Patient will need PCP. Scheduled appointment for hospital follow-up with Dr. Ofe Garcia on 11/27. 2. History of alcohol abuse in remission. -Patient drank heavily 1 bottle of hard alcohol daily quitting 1 year ago. -Elevated PT at 15.1/ INR 1.3 with a normal AST and ALT but elevated alkaline phosphatase at 183. Abdominal ultrasound did not demonstrate evidence of liver disease. 3. Chronic cough, present on admission. Stable. -Patient previously had pneumonia with empyema which is resolved. Complains of chronic nonproductive cough. Afebrile. -Chest x-ray did not demonstrate any acute cardiopulmonary process. -Echocardiogram unremarkable. -Viral respiratory PCR negative. -Ordered benzonatate 200 mg 3 times daily as needed. -Etiology unclear. Differential diagnosis includes postnasal drip from allergic rhinitis versus acid reflux versus mild asthma. Will need outpatient follow-up. Disposition: Likely to discharge in 1-2 days depending upon control of hyperglycemia of diabetes mellitus type 2 and diabetic education has been performed as patient will need to be on insulin long-term. Quality VTE Deep Vein Thrombosis/Pulmonary Embolism Present on Admission: Yes
[2018-11-22 08:22] LABS: Add Manual Diff / Slide Review NO; Alanine Aminotransferase 36 IU/L (21-72); Albumin 3.9 g/dL (3.5-5.0); Alkaline Phosphatase 206 U/L (38-126); Aspartate Aminotransferase 49 IU/L (17-59); BUN Creatinine Ratio 13.3 (6-22); Basophils Absolute Auto 0 /uL (0-100); Basophils Percent Auto 0.7 % (0-2); Blood Urea Nitrogen 8 mg/dL (9-20); Calcium 9.6 mg/dL (8.4-10.2); Carbon Dioxide 30 mmol/L (22-32); Chloride 98 mmol/L (98-107); Eosinophils Absolute Auto 100 /uL (0-450); Eosinophils Percent Auto 1.8 % (2-4); Estimated Glomerular Filt Rate > 60.0 mL/min (>60); Globulin 3.8 g/dL (1.7-4.1); Glucose 286 mg/dL (70-100); HEMOLYSIS < 15 (0-50); Hematocrit 43.1 % (41-53); Hemoglobin 14.9 g/dL (13.5-17.5); Lymphocytes Absolute Auto 1200 /uL (1100-4500); Lymphocytes Percent Auto 38.1 % (25-40); Magnesium 1.7 mg/dL (1.6-2.3); Mean Corpuscular HGB Conc 34.4 % (30-36); Mean Corpuscular Hemoglobin 29.1 PG (26-34); Mean Corpuscular Volume 84.5 fL (80-100); Monocytes Absolute Auto 400 /uL (0-900); Monocytes Percent Auto 12.5 % (3-14); Neutrophils Absolute Auto 1400 /uL (1500-7000); Neutrophils Percent Auto 46.9 % (50-75); Platelet Count 87 X10^3/uL (150-400); Potassium 3.7 mmol/L (3.4-5.1); Sodium 136 mmol/L (137-145); Total Protein 7.7 g/dL (6.3-8.2)
[2018-11-22] MEDS: ENOXAPARIN 40 MG/0.4 ML SYRINGE SUBCUT (08:55)
[2018-11-22] MEDS: MAGNESIUM SULFATE 2 GM/50 ML PIGGYBACK IV (08:56)
[2018-11-22] MEDS: METFORMIN HCL 500 MG TABLET 1000 MG PO ×2 (08:56→17:03)
[2018-11-22] MEDS: DOCUSATE 100 MG CAPSULE PO (08:56)
[2018-11-22] MEDS: INSULIN ASPART 100 UNIT/ML INSULN PEN SUBCUT ×4 (09:02→21:25)
[2018-11-22] MEDS: INSULIN GLARGINE 100 UNIT/ML 3ML PEN 30 UNIT SUBCUT ×2 (09:03→21:25)
--- NOTE | 2018-11-22 09:18 | PC.NURSE ---
PATIENT TEACHING R/T INSULIN INJECTION. PATIENT ABLE TO CONNECT NEEDLE TO PEN, PRIME 2 UNITS, DIAL TO CORRECT DOSE AND SELF INJECT WITH EXCELLENT TECHNIQUE. QUESTIONS ANSWERED PATIENT WAS VERBALLY WALKED THROUGH THE PROCESS OF SAME. WILL NEED RE-ENFORCEMENT OF DIRECTIONS, BUT LEARNS QUICKLY. PATIENT REPORTS HE USED TO ADMINISTER HIS GRANDFATHER'S INSULIN. PATIENT STILL REQUIRES TEACHING ON ACCU-CHECKS, AND POSSIBLY DRAWING UP INSULIN FROM A VIAL, SHOULD HIS INSURANCE NOT COVER THE PENS. HIS FAMILY MEMBER INTERPRETS FOR HIM AT THIS TIME.
--- NOTE | 2018-11-22 15:39 | PC.NURSE ---
Teaching: Pt gave own insulin at bkft and lunch, able to dial to correct dose on pen and give. His father was diabetic and he already has some knowledge about diabetes. Discussed glucose checks. Shown on hospital glucose meter how one is done. He is aware he will have something which may look different but the basic steps are same. Teaching will cont and he will see the RD tomorrow and special educator. Cont w/poc.
--- NOTE | 2018-11-22 17:41 | PC.NURSE ---
insulin administration 1715 pt able to turn dial/draw up insulin and self administer to abdomen.
[2018-11-23 04:08] VITALS: BP 110/70; PULSE 80; RESP 14; TEMP 36.7; O2SAT 98
[2018-11-23 06:03] LABS: Blood Urea Nitrogen 7 mg/dL (9-20); Calcium 9.2 mg/dL (8.4-10.2); Carbon Dioxide 24 mmol/L (22-32); Chloride 107 mmol/L (98-107); Estimated Glomerular Filt Rate > 60.0 mL/min (>60); Glucose 144 mg/dL (70-100); HEMOLYSIS < 15 (0-50); Magnesium 1.7 mg/dL (1.6-2.3); Sodium 140 mmol/L (137-145)
[2018-11-23] MEDS: PANTOPRAZOLE 20 MG TABLET PO (06:42)
[2018-11-23 08:00] VITALS: BP 114/72; PULSE 72; RESP 16; TEMP 36.1; O2SAT 96
[2018-11-23 08:34] VITALS: O2SAT 97
[2018-11-23] MEDS: DOCUSATE 100 MG CAPSULE PO (08:54)
[2018-11-23] MEDS: METFORMIN HCL 500 MG TABLET 1000 MG PO (08:54)
[2018-11-23] MEDS: INSULIN GLARGINE 100 UNIT/ML 3ML PEN 30 UNIT SUBCUT (08:56)
[2018-11-23] MEDS: INSULIN ASPART 100 UNIT/ML INSULN PEN SUBCUT (11:43)
--- NOTE | 2018-11-23 14:19 | PC.NURSE ---
Am shift Pt has been alert and talking with family this shift. Rafaela, Pot Builder into provide follow up on diabetic diet. Guest Laundry Attendant phone used for communication. D/c teaching reviewed with Dr Wells, home insulin changed to 70/30 mix for ease of medicating at home. Pt verbalizing understanding. IV removed, Pt to w/c for d/c home.
--- NOTE | 2018-11-23 17:52 | PM.DS.1 ---
History of Present Illness Date Patient Seen: 11/23/18 Chief complaint: STATES HIGH BLOOD SUGAR Narrative: his is a 42-year-old male patient with a past history of alcohol abuse, sober for 1 year, prior pneumonia development of empyema and elevated blood sugar who presents to the ER today with his nephew for feeling ill for 4 weeks and hyperglycemia. Patient reports being in deteriorating health starting 4 weeks ago with chills, headaches, dizziness and nausea. The patient used a friend's glucometer check his blood sugar with a result of ?high?. The patient notes that he was checked at a clinic 1 year ago at which time he had a blood sugar of 500. He reports associated symptoms of excessive thirst, excessive urination and hunger pains. He also reports his vision deteriorating over the same period but no visual field loss or cuts. Patient denies nasal congestion or sore throat has no neck or back pain, he reports chest pain associated with coughing but no shortness of breath. He denies abdominal pain but has had nausea as mention without vomiting. He also complains of recent constipation and reports nocturia 4-5 times nightly. The patient arrived in the ER at 7:42 p.m. and was found to have temperature of 98.7?, heart rate of 87, blood pressure 99/69, respirations of 18 in oxygen saturation of 98 % on room air. Patient's initial blood sugar was found to be 624. His blood count he has a white count 3.7 low hemoglobin 13.2 with hematocrit of 39.2 and platelets 69. His PT is elevated at 15 1 with an INR 1.3 a normal PTT of 36. He has an AST of 33, ALT of 31 elevated alkaline phosphatase at 183. On chemistries he is hyponatremic at 129 and potassium of 4.0.. with good renal function with a BUN of 14 creatinine 0.4. His BUN creatinine ratio 35 1. He is not acidotic with a pH of 7.40, pCO2 of 37 0.4 and a PO2 of 90 with a bicarb of 23 and a base excess of -2. The patient is non acidotic and in the ER has given 12 units of IV insulin and hydrated with 1 L of normal saline. The patient is admitted with a new diagnosis of diabetes and hyperosmolar nonketotic hyperglycemia. Discharge Providers Date of admission: 11/20/18 00:49 Discharge Date: 11/23/18 Primary care physician: Ofe Garcia MD Consults: 11/20/18 00:42 Consult to Dietitian, Adult Routine Comment: Reason For Exam: New diagnosis of diabetes, hyperglycemia Consult to Discharge Planning Routine Comment: 11/20/18 02:07 Consult to Dietitian, Adult Routine Comment: Reason For Exam: new onset diabetes Consult to Respiratory Therapy Evaluate & Treat Comment: Physician Instructions: Evaluate and treat 11/20/18 03:54 Consult to Urban Sociologist Routine Comment: New diabetic needing resources, HgA1c >14 11/22/18 13:03 Consult to Dietitian, Adult Routine Comment: Reason For Exam: Diabetic education diet, to see community health educator Discharge provider: Shruthi Wells MD Summary Discharge Diagnosis: New Onset Diabetes Poorly controlled Diabetes Acute bronchitis History of Alcoholism hypokalemia Hospital Course: Patient was admitted to the hospital for acute hyperglycemia, new onset diabetes. His blood sugars were markedly elevated at over 600. hemoglobin A1c was 14. patient was transition to insulin. Diabetic education was obtained during the hospital stay. Given his significant hyperglycemia he was taken off oral metformin and managed with just insulin. Patient is non-[place] speaking. However with the solution strategist phone and a friend we were able to explain to the patient proper insulin use. He will be sent home on twice daily insulin 70 30 for ease of administration. His blood sugars improved. His sugar this morning was 145. sugars have been in the 200s today. Patient was treated with benzoate for cough. He was deemed appropriate for discharge and arrangements were made for him to be discharged home. The patient has follow-up appointment with Dr. Garcia on 11/27. He will have ongoing outpatient diabetic education arranged with her office. Status at Discharge Cognitive/behavioral status at discharge: oriented Functional status at discharge: independent ambulation Overall status at discharge: patient is back to baseline Time Spent with Patient Greater than 30 minutes Exam Vital Signs (past 8 hours): Oxygen Delivery Method Room Air Oxygen Flow Rate 0 Narrative Exam Narrative: Pleasant male in no acute distress lungs: Clear to auscultation cardiac exam: Regular rate and rhythm normal S1-S2 abdomen: Soft nontender extremities: No edema Objective Labs Result Diagrams: 11/22/18 07:40 11/23/18 05:10 Labs: Laboratory Results - last 24 hr 11/23/18 05:10 Sodium 140 Potassium 3.0 L Chloride 107 Carbon Dioxide 24 BUN 7 L Creatinine 0.50 L Estimated GFR > 60.0 BUN/Creatinine Ratio 14.0 Glucose 144 H D Calcium 9.2 Magnesium 1.7 Discharge Plan Discharge Plan Patient Disposition: Home Discharge comment: follow up with Dr. Ofe Garcia within [address] Wells at [phone] with questions before you see Dr. Garcia Discharge Med Rec/Prescriptions Prescriptions: New benzonatate 100 mg Capsule 200 mg PO TID PRN (Reason: Cough) 10 Days RF: 0 insulin NPH and regular human 100 unit/mL (70-30) insulin pen 40 unit SUBCUT BID 30 Days Qty: 24 RF: 0 Continued albuterol sulfate [ProAir HFA] 90 mcg/actuation HFA aerosol inhaler 1 - 2 puff Inhalation PRN PRN (Reason: Shortness Of Breath) RF: 0 Other Ambulatory Orders: [facility]iscellaneous (Routine) Location: Laboratory Ordered By: Shruthi Wells Follow up/Referrals: Ofe Garcia MD [Primary Care Provider] - 11/27/18 3:15 pm (Follow up Appointment with Dr. Ofe Garcia on Tuesday November 27, 2018 at 3:15 PM check in time. Please bring insurance card, photo ID and any medications with you to appointment and turn in paperwork prior to appointment.) Provider Discharge Instructions Diet: Carb-consistent/Diabetic Activity: as tolerated Visit Report/Discharge Packet Instructions: How to Check Your Blood Glucose, How to Give a Subcutaneous Injection, Exercising Caution When You Have Diabetes, Carbohydrate-Counting Diet, The Importance of Counting Carbs If You Have Diabetes, How to Use an Insulin Pen, Insulin Aspart (rDNA Origin) Injection Visit Report Forms: Stroke Signs & Symptoms Discharge Data Primary Care Provider: Ofe Garcia Attending Provider: Isaiah Garcia Admit Date/Time: 11/20/18 00:49 Discharges patient from system. Discharge Date/Time: 11/23/18 15:36 Quality VTE Deep Vein Thrombosis/Pulmonary Embolism Present on Admission: Yes
[2018-11-25 15:20] LABS: C Peptide 0.42 ng/mL (0.80-3.85)
== END 2018-11-23 15:36 | disposition home or self-care (01) | DRG 639 ==
LOC: ED 11-20 00:49 → ICU 11-20 00:50 → AC 11-22 07:31
PROVIDERS: Internal Medicine; Nurse Practitioner Family; Admitting Provider Nurse Practitioner Adult Health; Emergency Provider Emergency Medicine; Family Provider Internal Medicine; PCP Internal Medicine; Visit Provider Nurse Practitioner Adult Health
DX: E11.00 Type 2 diabetes mellitus with hyperosmolarity without nonketotic hyperglycemic-hyperosmolar coma (NKHHC) (principal); F10.21 Alcohol dependence, in remission; F17.200 Nicotine dependence, unspecified, uncomplicated; R05 Cough
CPT/HCPCS: 36415; 36591; 36600; 71046; 76700; 80048; 80053; 80061; 82009; 82550; 82805; 82962; 83036; 83605; 83735; 84145; 84484; 84681; 85025; 87070; 87205; 87633; 87797; 90471; 90656; 93005; 93306; 96361; 96374; 99283; 99284; J1650; J3480; Q2038

== ENCOUNTER → 2018-11-27 17:03 | Outpatient (CLI) | payer OTHER, SELFPAY ==
[2018-11-20 01:11] VITALS: BMI 21.6
[2018-12-02 12:39] LABS: C Peptide 0.43 ng/mL (0.80-3.85)
== END ==
PROVIDERS: PCP Internal Medicine; Visit Provider Internal Medicine
DX: E13.00 Other specified diabetes mellitus with hyperosmolarity without nonketotic hyperglycemic-hyperosmolar coma (NKHHC) (principal)
CPT/HCPCS: 36415; 84681; 86341